=== PATIENT | female | born 2000 | race Two or more races ===

== ENCOUNTER 2024-03-01 22:14 | Emergency (ER) | payer OTHER ==
[~2024-03-01] VITALS: Ht 170.2 cm; Wt 86.0 kg
[2024-03-01 22:23] VITALS: TEMP 98
[2024-03-01] MEDS ORDERED: paracetamol PO (22:36)
[2024-03-01] MEDS ORDERED: [UNRECOGNIZED DRUG - OTHER] PO (22:36)
[2024-03-01] MEDS ORDERED: OMEP20 PO (22:36)
[2024-03-01] MEDS ORDERED: PREGABALIN PO (22:36)
[2024-03-01] MEDS ORDERED: [UNRECOGNIZED DRUG - OTHER] PO (22:36)
[2024-03-01] MEDS ORDERED: ENOX40SY14 SQ (22:36)
[2024-03-01] MEDS ORDERED: [UNRECOGNIZED DRUG - OTHER] (22:43)
[2024-03-01] MEDS ORDERED: [UNRECOGNIZED DRUG - OTHER] PO (22:43)
[2024-03-01] MEDS ORDERED: [UNRECOGNIZED DRUG - OTHER] PO (22:43)
[2024-03-02] MEDS: LORazepam 1 MG TABLET PO ONE (00:41)
[2024-03-02] MEDS ORDERED: LORA-1000 PO (01:09)
[2024-03-02] MEDS ORDERED: ZOLP-280 PO ×2 (01:09→01:11)
[2024-03-02 01:23] VITALS: BP 128/82; PULSE 103; RESP 26
== END 2024-03-02 01:26 | disposition home or self-care (01) ==
LOC: EMS 22:14
DX: F41.9 Anxiety disorder, unspecified (principal); G47.00 Insomnia, unspecified; Z90.49 Acquired absence of other specified parts of digestive tract
CPT/HCPCS: 99283

== ENCOUNTER 2024-03-25 18:06 | Emergency (ER) | payer OTHER ==
[~2024-03-25] VITALS: Ht 170.2 cm; Wt 81.8 kg
[~2024-03-25 18:06] MED LIST: ENOX40SY14 SQ; LORA-1000 PO; OMEP20 PO; PREGABALIN PO; ZOLP-280 PO; [UNRECOGNIZED DRUG - OTHER]; [UNRECOGNIZED DRUG - OTHER] PO; [UNRECOGNIZED DRUG - OTHER] PO; [UNRECOGNIZED DRUG - OTHER] PO; [UNRECOGNIZED DRUG - OTHER] PO; paracetamol PO
[2024-03-25 18:13] VITALS: TEMP 98
[2024-03-25] MEDS ORDERED: CEPH-558 PO (19:27)
[2024-03-25] MEDS ORDERED: [UNRECOGNIZED DRUG - CODE] TD (19:37)
[2024-03-25] MEDS: PERTUSS(ACELL),DIPH,TET/PF 0.5 ML SYRINGE [ADULT] IM. ONE (19:38)
[2024-03-25 19:42] VITALS: BP 124/80; PULSE 75; RESP 18
== END 2024-03-25 19:54 | disposition home or self-care (01) ==
LOC: EMS 18:06
DX: Z48.00 Encounter for change or removal of nonsurgical wound dressing (principal)
CPT/HCPCS: 90471; 90715; 99283

== ENCOUNTER 2025-04-20 13:59 | Emergency (ER) | payer OTHER ==
[~2025-04-20] VITALS: Ht 170.2 cm; Wt 79.5 kg
[~2025-04-20 13:59] MED LIST changes: +CEPH-558 PO; -LORA-1000 PO; +OMEP-148 PO; -OMEP20 PO; -ZOLP-280 PO; +[UNRECOGNIZED DRUG - CODE] TD; -[UNRECOGNIZED DRUG - OTHER] PO
[2025-04-20 14:02] VITALS: TEMP 98.1
[2025-04-20] MEDS ORDERED: TIRZ7.5P SQ (14:08)
[2025-04-20 14:38] LABS: APPEARANCE,URINE HAZY (CLEAR); GLUCOSE, URINE (UA) NEGATIVE (NEGATIVE); LEUKOCYTE ESTERASE ,URINE LARGE (NEGATIVE); NITRATE,URINE NEGATIVE (NEGATIVE); OCCULT BLOOD,URINE LARGE (NEGATIVE); SPECIFIC GRAVITIY, URINE 1.016 (1.003-1.030)
[2025-04-20 14:45] LABS: HCG,QUAL URINE NEGATIVE (NEGATIVE)
[2025-04-20 14:54] LABS: PLATELET COUNT (AUTO) 499 K/uL (150-450); RED BLOOD CELL COUNT(AUTO) 4.58 MIL/uL (4.00-5.20); RED CELL DISTRIBUTION WIDTH 13.4 % (11.5-14.5); WHITE BLOOD COUNT (AUTO) 8.8 K/uL (4.5-11.0)
[2025-04-20 14:56] LABS: SQUAMOUS EPITHELIAL CELL,UR Few /LPF (None Seen)
[2025-04-20 15:01] LABS: CREATININE 0.78 mg/dL (0.60-1.30); GLUCOSE,RANDOM 82 mg/dL (70-110); SODIUM SERUM 139 mmol/L (136-145); UREA NITROGEN, BLOOD 9 mg/dL (7-18)
[2025-04-20 15:02] LABS: CALCIUM, TOTAL 8.4 mg/dL (8.8-10.5); GLOMERULAR FILTR. RATE CALC > 60 mL/min (>60)
[2025-04-20 16:19] VITALS: BP 135/72; PULSE 72; RESP 18; O2SAT 98
[2025-04-20] MEDS ORDERED: ERGO500093 PO (16:19)
[2025-04-20] MEDS: CEPHALEXIN MONOHYDRATE 500 MG CAPSULE PO ONE (16:25)
== END 2025-04-20 16:31 | disposition home or self-care (01) ==
LOC: EMS 13:59
DX: N39.0 Urinary tract infection, site not specified (principal); Z90.49 Acquired absence of other specified parts of digestive tract; Z79.3 Long term (current) use of hormonal contraceptives; Z79.899 Other long term (current) drug therapy
CPT/HCPCS: 80048; 81001; 84703; 85025; 87086; 99283